=== PATIENT | female | born 1995 | race Caucasian/White ===

== ENCOUNTER 2018-01-05 21:34 | Emergency (ER) | payer OTHER ==
[2018-01-05] MEDS ORDERED: SODIUM CHLORIDE 0.9% 1,000 ML IV ONE (21:56)
[2018-01-05] MEDS ORDERED: FAMOTIDINE 20 MG/2 ML VIAL IV STA (21:56)
--- NOTE | 2018-01-05 22:16 | ED ---
General Adult HPI - General Chief complaint: Nausea/Vomiting/Diarrhea Stated complaint: abdominal pain/early Time Seen by Provider: 01/05/18 21:47 Source: patient Mode of arrival: ambulatory Limitations: no limitations - History of Present Illness Initial comments: Isa Grover is a 22yo female currently approximately 10 weeks based on LMP of 10/17/2017. Patient reports she has not had any care yet this but is scheduled to see OB on 01/08. Patient reports that she has been in her usual state of health, not experienced any morning sickness or vomiting in this . Patient reports that yesterday throughout the day she had multiple loose stools, today she developed nausea and persistent vomiting throughout the day. She reports this evening she attempted to eat green beans for dinner and subsequently vomited those up. At that time she decided to come to the ER for further evaluation. Patient reports she is having some epigastric discomfort associated with vomiting. Patient denies any lower abdominal pain, any pelvic pain, any vaginal discharge or bleeding. She reports that this is her third and she's never had any complications with , she has never experienced morning sickness or been ill during her . She reports that prior to yesterday she was feeling quite well. She denies any suspicious food intake or known sick contacts. She has a 4-year-old and 1-year-old child at home, neither for experiencing any symptoms. - Related Data Home Medications Medication Instructions Recorded Confirmed Pnv No.95/Ferrous Fum/Folic AC 01/05/18 [ Multivitamin Tablet] Previous Rx's Medication Instructions Recorded Cephalexin [Keflex] 500 mg PO Q6HR #28 cap 01/06/18 Allergies Allergy/AdvReac Type Severity Reaction Status Date / Time No Known Allergies Allergy Verified 01/05/18 21:45 Review of Systems ROS Statement: Those systems with pertinent positive or pertinent negative responses have been documented in the HPI. ROS Other: All systems not noted in ROS Statement are negative. Constitutional: Denies: fever ENT: Denies: throat pain Respiratory: Denies: cough, dyspnea Cardiovascular: Denies: chest pain, palpitations Endocrine: Denies: fatigue Gastrointestinal: Reports: abdominal pain, nausea, vomiting, diarrhea Genitourinary: Reports: abnormal menses (LMP 10/17/17). Denies: urgency, dysuria , frequency Skin: Denies: rash Neurological: Denies: headache Psychiatric: Denies: anxiety, depression Hematological/Lymphatic: Denies: easy bleeding, easy bruising Past Medical History Past Medical History: No Reported History History of Any Multi-Drug Resistant Organisms: None Reported Past Surgical History: Appendectomy Past Psychological History: No Psychological Hx Reported Smoking Status: Current some day smoker Past Alcohol Use History: None Reported Past Drug Use History: None Reported General Exam Limitations: no limitations General appearance: alert, in no apparent distress Head exam: Present: atraumatic, normocephalic Eye exam: Present: normal appearance, PERRL ENT exam: Present: normal exam Neck exam: Present: normal inspection Respiratory exam: Absent: respiratory distress Cardiovascular Exam: Present: regular rate, normal rhythm GI/Abdominal exam: Present: soft, tenderness (mild tenderness to deep palpation of epigastrum), normal bowel sounds. Absent: distended, guarding, rebound, rigid Extremities exam: Present: normal inspection Back exam: Present: normal inspection Neurological exam: Present: alert, oriented X3 Psychiatric exam: Present: normal affect, normal mood Skin exam: Present: warm, dry, intact Course Vital Signs 01/05/18 01/05/18 01/06/18 21:41 22:50 00:21 Temperature 98.6 F 98.8 F 98.6 F Pulse Rate 85 78 89 Respiratory 20 19 19 Rate Blood Pressure 109/59 129/56 114/55 O2 Sat by Pulse 100 100 100 Oximetry - Reevaluation(s) Reevaluation #1: Patient reevaluated, resting comfortably. States that she feels as though she can drink water at this time. Patient was given icewater. 01/05/18 23:13 Reevaluation #2: Patient drink entire cup of water and Keflex, she subsequently vomited up the Keflex. I will order Rocephin. Advised patient to drink small amounts slowly rather than drinking the entire cup of water's. Patient reports she's feeling well. 01/05/18 23:52 Medical Decision Making - Medical Decision Making Patient seen and evaluated, history obtained from patient and significant other at bedside Patient with known , 1 day of diarrhea with subsequent development of nausea and vomiting - vital signs are stable, physical exam reveals no evidence of dehydration Labs and IV fluids were ordered UA is likely contaminated, however considering the patient is we will treat Labs with no significant abnormalities, patient was updated on findings and reevaluated after IV fluids. Patient reports she is feeling much better. She was given a large glass of ice water and advised that she'll be given by mouth Keflex for urinary tract infection. Patient was reevaluated, she drink the entire glass of water and to Keflex very quickly, she subsequently vomited up the water and Keflex, however she reports she is feeling better now. Advised the patient to drink much slower. At this time I will treat with IV Rocephin for possible urinary tract infection. Advised patient that should when she follows up with her OB on Saturday she is have a repeat urinalysis. At this time the patient is tolerating by mouth and is comfortable with the plan for discharge home. All questions pertaining to care were answered best my ability patient was discharged home in stable condition with plan to follow up with OB as scheduled on Saturday of this week. - Lab Data Result diagrams: 01/05/18 22:01/05/18 22: Lab Results 01/05/18 01/05/18 01/05/18 Range/Units 22:01 22:01 22:01 WBC 10.8 H (3.8-10.6) k/uL RBC 4.54 (3.80-5.40) m/uL Hgb 14.0 (11.4-16.0) gm/dL Hct 38.4 (34.0-46.0) % MCV 84.6 (80.0-100.0) fL MCH 30.9 (25.0-35.0) pg MCHC 36.6 (31.0-37.0) g/dL RDW 11.9 (11.5-15.5) % Plt Count 188 (150-450) k/uL Neutrophils % 79 % Lymphocytes % 14 % Monocytes % 5 % Eosinophils % 1 % Basophils % 0 % Neutrophils # 8.5 H (1.3-7.7) k/uL Lymphocytes # 1.5 (1.0-4.8) k/uL Monocytes # 0.5 (0-1.0) k/uL Eosinophils # 0.1 (0-0.7) k/uL Basophils # 0.0 (0-0.2) k/uL Hyperchromasia Slight Sodium 138 (137-145) mmol/L Potassium 3.8 (3.5-5.1) mmol/L Chloride 103 (98-107) mmol/L Carbon Dioxide 23 (22-30) mmol/L Anion Gap 12 mmol/L BUN 9 (7-17) mg/dL Creatinine 0.50 L (0.52-1.04) mg/dL Est GFR (CKD-EPI)AfAm >90 (>60 ml/min/1.73 sqM) Est GFR (CKD-EPI)NonAf >90 (>60 ml/min/1.73 sqM) Glucose 86 (74-99) mg/dL Calcium 8.9 (8.4-10.2) mg/dL Total Bilirubin 0.7 (0.2-1.3) mg/dL AST 19 (14-36) U/L ALT 20 (9-52) U/L Alkaline Phosphatase 54 (38-126) U/L Total Protein 6.2 L (6.3-8.2) g/dL Albumin 3.6 (3.5-5.0) g/dL Lipase 93 (23-300) U/L Urine Color Yellow Urine Appearance Cloudy H (Clear) Urine pH 7.0 (5.0-8.0) Ur Specific Eddy 1.024 (1.001-1.035) Urine Protein Trace H (Negative) Urine Glucose (UA) Negative (Negative) Urine Ketones Negative (Negative) Urine Blood Negative (Negative) Urine Nitrite Negative (Negative) Urine Bilirubin Negative (Negative) Urine Urobilinogen <2.0 (<2.0) mg/dL Ur Leukocyte Esterase Large H (Negative) Urine RBC 1 (0-5) /hpf Urine WBC 45 H (0-5) /hpf Ur Squamous Epith Cells 34 H (0-4) /hpf Amorphous Sediment Occasional H (None) /hpf Urine Bacteria Few H (None) /hpf Urine Mucus Few H (None) /hpf Disposition Clinical Impression: Nausea and vomiting during Disposition: HOME SELF-CARE Condition: Good Instructions: Acute Nausea and Vomiting (ED) Prescriptions: Cephalexin [Keflex] 500 mg PO Q6HR #28 cap Is patient prescribed a controlled substance at d/c from ED?: No Referrals: None,Stated [Primary Care Provider] - 1-2 days Time of Disposition: 23:53
[2018-01-05 22:24] LABS: Basophils % (A) 0 %; Eosinophils # (A) 0.1 k/uL (0-0.7); Eosinophils % (A) 1 %; HCT 38.4 % (34.0-46.0); Hyperchromasia Slight; Lymphocytes # (A) 1.5 k/uL (1.0-4.8); Lymphocytes % (A) 14 %; MCH 30.9 pg (25.0-35.0); MCHC 36.6 g/dL (31.0-37.0); MCV 84.6 fL (80.0-100.0); Mean Platelet Volume 7.8; Monocytes # (A) 0.5 k/uL (0-1.0); Monocytes % (A) 5 %; Neutrophils # (A) 8.5 k/uL (1.3-7.7); Neutrophils % (A) 79 %; Platelet Count 188 k/uL (150-450); RBC 4.54 m/uL (3.80-5.40); RDW 11.9 % (11.5-15.5); WBC 10.8 k/uL (3.8-10.6)
[2018-01-05 22:35] LABS: Amorphous Sediment,Urine Occasional /hpf; Appearance,Urine Cloudy (Clear); Bacteria,Urine Few /hpf; Bilirubin,Urine Negative (Negative); Blood,Urine Negative (Negative); Color,Urine Yellow; Glucose,Urine (UA) Negative (Negative); Ketones,Urine Negative (Negative); Leukocyte Esterase,Urine Large (Negative); Mucus,Urine Few /hpf; Nitrite,Urine Negative (Negative); Protein,Urine Trace (Negative); RBC,Urine 1 /hpf (0-5); Specific Gravity,Urine 1.024 (1.001-1.035); Squamous Epithelial Cell,Urine 34 /hpf (0-4); Urobilinogen,Urine <2.0 mg/dL (<2.0); WBC,Urine 45 /hpf (0-5)
[2018-01-05 22:47] LABS: ALT 20 U/L (9-52); AST 19 U/L (14-36); Albumin 3.6 g/dL (3.5-5.0); Alkaline Phosphatase 54 U/L (38-126); Anion Gap 12 mmol/L; Blood Urea Nitrogen 9 mg/dL (7-17); Calcium 8.9 mg/dL (8.4-10.2); Carbon Dioxide 23 mmol/L (22-30); Chloride 103 mmol/L (98-107); Glucose 86 mg/dL (74-99); Lipase 93 U/L (23-300); Potassium 3.8 mmol/L (3.5-5.1); Sodium 138 mmol/L (137-145); Total Bilirubin 0.7 mg/dL (0.2-1.3); Total Protein 6.2 g/dL (6.3-8.2)
[2018-01-05] MEDS ORDERED: CEPHALEXIN 500MG STARTER PACK 4 CAP BTL PO STA (22:57)
[2018-01-05 22:59] VITALS: RESP 19
[2018-01-05] MEDS ORDERED: cefTRIAXone IN SWFI 1,000 MG/10 ML SYRINGE IVP STA (23:50)
[2018-01-06 00:23] VITALS: BP 114/55; PULSE 89; TEMP 98.6
== END 2018-01-06 00:24 | disposition home or self-care (01) ==
LOC: EC 21:34
DX: O21.9 Vomiting of pregnancy, unspecified (principal); O26.891 Other specified pregnancy related conditions, first trimester; R10.13 Epigastric pain; O99.331 Smoking (tobacco) complicating pregnancy, first trimester; F17.200 Nicotine dependence, unspecified, uncomplicated; Z3A.10 10 weeks gestation of pregnancy; Z90.49 Acquired absence of other specified parts of digestive tract
CPT/HCPCS: 36415; 80053; 83690; 85025; 81001; 99284; 96374; 96375; 96361; J0696

== ENCOUNTER → 2018-01-16 | Outpatient (CLI) | payer OTHER ==
--- NOTE | 2018-01-16 13:48 | US ---
EXAMINATION TYPE: Transabdominal DATE OF EXAM: 12/17/17 COMPARISON: NONE CLINICAL HISTORY: confirm dates Z36; smoker, EXAM PERFORMED: Transabdominal (TA) EXAM MEASUREMENTS: GESTATIONAL AGE / DATING Physician Established: Not yet established Dates by LMP: (13 weeks/ 0 days) EDC: 07/24/2018 Dates by First Scan: No previous. This is first scan Dates by Current Scan for: (12 weeks/4 days) EDC: 07/27/2018 MATERNAL ANATOMY Uterus: 12.6 x 8.1 x 8.6cm Right Ovary: 2.5 x 1.6 x 2.0cm with cyst = 1.4 x 1.1 x 1.2 Left Ovary: 2.6 x 2.2 x 1.9cm with Corpus Luteum of Post CDS / Adnexa: wnl Presence of free fluid: no Presence of corpus luteal cyst: in left ovary =1.5 x 1.5 x 1.4cm with peripheral ring of color flow Presence of subchorionic bleed: no GESTATION / SURVEY CRL: 6.2cm (12 weeks/4 days) Yolk Sac (normal less than 6mm): not seen Heart Rate: 163 bpm Rhythm: Normal IUP: Viable IUP Nuchal Translucency 10-14wks (normal less than 3mm): 0.7mm Date of LMP: 10/17/2017 Beta HcG (if available): NA Single, live IUP, 12 weeks/4 days, EDC: 07/27/2018, HR 163bpm. IMPRESSION: Single live intrauterine with a sonographic age of 12 weeks and 4 days and estimated date o f delivery of 07/27/2018. Dates are concordant with menstrual age.
[2018-01-16 13:57] LABS: HCT 38.1 % (34.0-46.0); HGB 13.5 gm/dL (11.4-16.0); MCH 30.6 pg (25.0-35.0); MCHC 35.4 g/dL (31.0-37.0); MCV 86.6 fL (80.0-100.0); Mean Platelet Volume 8.4; Platelet Count 191 k/uL (150-450); RDW 12.2 % (11.5-15.5); WBC 7.7 k/uL (3.8-10.6)
[2018-01-16 14:13] LABS: Glucose 71 mg/dL (74-99)
[2018-01-16 19:58] LABS: HIV AB P24 Non-Reactive (Non-Reactive); HIV P24 AG Non-Reactive (Non-Reactive)
[2018-01-17 03:05] LABS: Toxoplasma Antibody (IgG) <3.0 IU/mL (<7.2); Toxoplasma Antibody (IgM) <3.0 AU/mL (<8.0)
== END | disposition home or self-care (01) ==
LOC: RADUSWWP 12:49
PROVIDERS: ATTEND Obstetrics & Gynecology
DX: O26.811 Pregnancy related exhaustion and fatigue, first trimester (principal); Z3A.12 12 weeks gestation of pregnancy
CPT/HCPCS: 36415; 76801; 76813; 82565; 82947; 85027; 86762; 86777; 86778; 86780; 86850; 86900; 86901; 87340; 87390

== ENCOUNTER 2018-07-21 06:00 | Inpatient (IN) | payer OTHER ==
--- NOTE | 2018-07-20 09:43 | P.HPOB ---
History of Present Illness H&P Date: 07/20/18 Chief Complaint: Induction of labor This is a 22-year-old female 3 para 2 with an estimated date of confinement of 07/24/2018, estimated gestational age of 39-4/7 weeks, who presents to labor and delivery for induction of labor. She admits to good movement. She has been feeling irregular contractions and pressure. course has been essentially uncomplicated. labs: Hepatitis B surface antigen-negative on reactive Rubella-immune Syphilis antibody-negative Random glucose-71 Hemoglobin-13.5 HIV-nonreactive Toxoplasma-negative Blood type-B+ Antibody screen-negative Quad screen-negative One hour Glucola-128 Group B streptococcus-positive Obstetrical history: . History of 2 vaginal deliveries at term. Gynecologic history: No history of sexually transmitted diseases. 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 Review of Systems Constitutional: Reports as per HPI, Denies chills, Denies fever Eyes: denies blurred vision, denies pain Ears, nose, mouth and throat: Denies headache, Denies sore throat Respiratory: Denies cough Gastrointestinal: Reports abdominal pain (Irregular contractions) Genitourinary: Reports pelvic pain, Reports Musculoskeletal: Reports low back pain Integumentary: Denies pruritus, Denies rash Neurological: Denies numbness, Denies weakness Psychiatric: Denies anxiety, Denies depression Past Medical History Past Medical History: No Reported History History of Any Multi-Drug Resistant Organisms: None Reported Past Surgical History: Appendectomy Past Psychological History: No Psychological Hx Reported Smoking Status: Current some day smoker Past Alcohol Use History: None Reported Past Drug Use History: None Reported Medications and Allergies Home Medications Medication Instructions Recorded Confirmed Type Pnv No.95/Ferrous Fum/Folic AC 01/05/18 History [ Multivitamin Tablet] Allergies Allergy/AdvReac Type Severity Reaction Status Date / Time No Known Allergies Allergy Verified 01/05/18 21:45 Exam Osteopathic Statement: *. No significant issues noted on an osteopathic structural exam other than those noted in the History and Physical/Consult. HEENT: Within normal limits Heart: Regular rate and rhythm Lungs: Clear to auscultation bilaterally Abdomen: Cervix: 1-1/2 cm/60%/-1 station heart tones: 150s by Doppler Extremities: Negative Homans Assessment and Plan (1) 39 weeks gestation of Status: Acute Code(s): Z3A.39 - 39 WEEKS GESTATION OF SNOMED Code( s): 89435166 (2) Group B Streptococcus carrier, +RV culture, currently Status: Acute Code(s): O99.820 - STREPTOCOCCUS B CARRIER STATE COMPLICATING SNOMED Code(s): 6143401493768 Plan: Antibiotic prophylaxis for group B streptococcus. Oxytocin induction of labor. Epidural anesthesia if desired.
[2018-07-21] MEDS ORDERED: TERBUTALINE 1 MG/ML VIAL SQ PRN (06:19)
[2018-07-21] MEDS ORDERED: LIDOCAINE 1% INJ 10MG/ML (20 ML MDV) SQ PRN (06:19)
[2018-07-21] MEDS ORDERED: OXYTOCIN 10 UNIT/ML 1 ML VIAL IM PRN (06:19)
[2018-07-21] MEDS ORDERED: LIDOCAINE 1% 20 ML VIAL (10MG/ML) FOR IV START INTRADERMA PRN (06:19)
[2018-07-21] MEDS ORDERED: METHYLERGONOVINE 0.2 MG/ML 1 ML AMP IM PRN (06:19)
[2018-07-21] MEDS ORDERED: AMPICILLIN 2,000 MG in SODIUM CHLORIDE 0.9% 100 ML IVPB STA (06:19)
[2018-07-21] MEDS ORDERED: OXYTOCIN 20 UNITS/1000 ML NS 1,000 ML IV SCH (06:19)
[2018-07-21] MEDS ORDERED: CARBOPROST TROMETHAMINE 250 MCG/ML 1 ML AMP IM PRN (06:19)
[2018-07-21 06:30] LABS: Basophils % (A) 0 %; Eosinophils # (A) 0.1 k/uL (0-0.7); Eosinophils % (A) 1 %; HCT 41.1 % (34.0-46.0); HGB 14.3 gm/dL (11.4-16.0); Lymphocytes # (A) 2.1 k/uL (1.0-4.8); Lymphocytes % (A) 23 %; MCH 30.7 pg (25.0-35.0); MCHC 34.8 g/dL (31.0-37.0); MCV 88.4 fL (80.0-100.0); Mean Platelet Volume 8.3; Monocytes # (A) 0.4 k/uL (0-1.0); Monocytes % (A) 5 %; Neutrophils # (A) 6.3 k/uL (1.3-7.7); Neutrophils % (A) 69 %; Platelet Count 183 k/uL (150-450); RBC 4.65 m/uL (3.80-5.40); RDW 12.8 % (11.5-15.5); WBC 9.1 k/uL (3.8-10.6)
[2018-07-21] MEDS: LACTATED RINGERS 1,000 ML IV SCH ×2 (06:32→10:00)
[2018-07-21 06:44] VITALS: BMI 28.0
[2018-07-21] MEDS ORDERED: ROPIVACAINE 100 MG, fentaNYL (PF) 200 MCG in SODIUM CHLORIDE 0.9% 76 ML EPIDURAL ONE (10:16)
[2018-07-21] MEDS: AMPICILLIN 1,000 MG in SODIUM CHLORIDE 0.9% 50 ML IVPB SCH ×2 (10:33→14:28)
--- NOTE | 2018-07-21 15:34 | P.PROBDLV ---
Vaginal Delivery Note - . Vaginal Delivery Note: The patient progressed to complete dilation after oxytocin induction of labor and artificial rupture membranes with clear fluid noted. She did receive epidural anesthesia. She began pushing. 's head came to a crown. With one further push, the 's head delivered across the perineum followed by the anterior shoulder. Nose and mouth were bulb suctioned at the perineum. With one further push, the remainder the infant easily delivered and was placed on mother's abdomen. Cord was clamped and cut and was taken to warmer for evaluation. A viable male infant was noted with scores of 9 at 1 minute and 10 at 5 minutes and weight of 6 lbs. 3 oz. Placenta delivered shortly thereafter, intact, with a three-vessel cord. IV went subcu and therefore IM oxytocin was given. Uterus contracted fairly well and bleeding slowed. Evaluation of the perineum revealed bilateral periurethral abrasions but no active bleeding. Estimated blood loss is approximately 200 mL' s. Both mother and are in stable condition.
[2018-07-21 16:26] VITALS: RESP 16
[2018-07-21] MEDS ORDERED: HYDROCORTISONE 2.5% RECTAL CREAM 30 GM TUBE RECTAL PRN (16:34)
[2018-07-21] MEDS ORDERED: WITCH HAZEL 1 EACH MED..PAD TOPICAL PRN (16:34)
[2018-07-21] MEDS ORDERED: ACETAMINOPHEN TAB 325 MG TAB PO PRN (16:34)
[2018-07-21] MEDS ORDERED: SIMETHICONE 80 MG CHEWABLE PO PRN (16:34)
[2018-07-21] MEDS ORDERED: LANOLIN CREAM 5 GM TUBE TOPICAL PRN (16:34)
[2018-07-21] MEDS ORDERED: diphenhydrAMINE 25 MG CAP PO PRN (16:34)
[2018-07-21] MEDS ORDERED: diphenhydrAMINE 50 MG CAP PO PRN (16:34)
[2018-07-21] MEDS ORDERED: NICOTINE 14MG/24HR PATCH TRANSDERM STA (17:15)
[2018-07-21] MEDS ORDERED: INFLUENZA VACCINE (6 MOS+) 60 MCG/0.5 ML SYRINGE IM ONE (17:16)
[2018-07-21] MEDS ORDERED: DIPH,PERTUS(ACELL)TETVAC-LF 0.5 ML VIAL IM ONE (17:17)
[2018-07-21] MEDS: IBUPROFEN 600 MG TAB PO PRN (18:55)
[2018-07-21] MEDS: SENNOSIDES-DOCUSATE SODIUM 1 EACH TAB PO SCH (20:04)
[2018-07-22] MEDS: IBUPROFEN 600 MG TAB PO PRN ×3 (04:28→15:49)
[2018-07-22 07:08] LABS: Basophils % (A) 0 %; Eosinophils # (A) 0.1 k/uL (0-0.7); Eosinophils % (A) 1 %; HCT 36.7 % (34.0-46.0); HGB 12.2 gm/dL (11.4-16.0); Lymphocytes # (A) 1.9 k/uL (1.0-4.8); Lymphocytes % (A) 21 %; MCHC 33.3 g/dL (31.0-37.0); Mean Platelet Volume 8.2; Monocytes # (A) 0.5 k/uL (0-1.0); Monocytes % (A) 5 %; Neutrophils # (A) 6.8 k/uL (1.3-7.7); Neutrophils % (A) 72 %; Platelet Count 142 k/uL (150-450); RBC 4.08 m/uL (3.80-5.40); RDW 12.9 % (11.5-15.5); WBC 9.4 k/uL (3.8-10.6)
--- NOTE | 2018-07-22 08:58 | P.DS ---
Providers Date of admission: 07/21/18 06:10 Expected date of discharge: 07/22/18 Attending physician: Cris Kruger Primary care physician: Stated None - Discharge Diagnosis(es) (1) 39 weeks gestation of Current Visit: No Status: Acute (2) Group B Streptococcus carrier, +RV culture, currently Current Visit: No Status: Acute Hospital Course: This is a 22-year-old female 3 para 2 at 39-4/7 weeks who presented for induction of labor. She underwent oxytocin induction of labor and delivered vaginally a viable female infant on 07/21/2018 with scores of 9 at 1 minute and 10 at 5 minutes and weight of 6 lbs. 3 oz. Her course has been uncomplicated. She is bottle feeding. Lochia is decreasing. Pain is fairly well controlled with ibuprofen. Vital signs are stable. Abdomen is soft with fundus firm and nontender. Extremities show negative Homans. Impression is status post vaginal delivery day #1. Plan is to discharge home today. Routine instructions are given. She will be given a prescription for ibuprofen. She is instructed to follow-up in the office in 6 weeks for check. She is advised to call the office if she has any further questions or concerns prior to her appointment time. Procedures: Oxytocin induction of labor Spontaneous vaginal delivery of a viable female on 07/21/2018 Patient Condition at Discharge: Stable Plan - Discharge Summary New Discharge Prescriptions: New Ibuprofen [Motrin] 600 mg PO Q6HR PRN #60 tab PRN Reason: Mild Pain Or Fever >= 100.5 Continue Pnv No.95/Ferrous Fum/Folic AC [ Multivitamin Tablet] Discharge Medication List Pnv No.95/Ferrous Fum/Folic AC [ Multivitamin Tablet] 01/05/18 [History ] Ibuprofen [Motrin] 600 mg PO Q6HR PRN #60 tab 07/22/18 [Rx] Follow up Appointment(s)/Referral(s): Cris Kruger DO [Doctor of Osteopathic Medicine] - 6 Weeks Activity/Diet/Wound Care/Special Instructions: Instructions 1. Do not begin any exercise program for 3 weeks. 2. Do not resume sexual relations for 3 weeks or longer if uncomfortable. 3. You may take tub baths or showers at any time. 4. You may use tampons if desired after 3 weeks. 5. Keep the area of episiotomy (stitches) clean and dry. 6. If you are not nursing, wear a good fitting, supportive bra during the day and limit fluid intake for at least 1 week to prevent breast engorgement. 7. Call the office, [phone], within the next week to make appointment for your 6 week checkup if it has not already been made. 8. Report any of the following occurrences to the doctor promptly: a. Heavy, excessive bleeding b. Chills, fever c. Burning or frequency of urination d. Pain or redness and breasts if nursing e. Increasing pain or swelling in episiotomy (stitches). In addition to the above instructions, the following additional should be followed: 1. No heavy lifting or straining (exercising) until after 6 week checkup. 2. Keep abdominal incision clean and dry: You may wear a dressing if more comfortable. 3. Make office appointment for 10 days after going home or as instructed by her doctor. Discharge Disposition: HOME SELF-CARE
[2018-07-22] MEDS: SENNOSIDES-DOCUSATE SODIUM 1 EACH TAB PO SCH (10:15)
[2018-07-22 15:54] VITALS: BP 134/73; PULSE 99; TEMP 98.7
== END 2018-07-22 16:45 | disposition home or self-care (01) | DRG 776 ==
LOC: 4FBP 06:10
PROVIDERS: ADMIT Obstetrics & Gynecology; ATTEND Obstetrics & Gynecology
PROC: 10907ZC Drainage of Amniotic Fluid, Therapeutic from Products of Conception, Via Natural or Artificial Opening (ICD-10-PCS; principal; 2018-07-21)
PROC: 3E033VJ Introduction of Other Hormone into Peripheral Vein, Percutaneous Approach (ICD-10-PCS; 2018-07-21)
PROC: 00HU33Z Insertion of Infusion Device into Spinal Canal, Percutaneous Approach (ICD-10-PCS; 2018-07-21)
PROC: 3E0R3BZ Introduction of Anesthetic Agent into Spinal Canal, Percutaneous Approach (ICD-10-PCS; 2018-07-21)
DX: O71.82 Other specified trauma to perineum and vulva (principal); O99.824 Streptococcus B carrier state complicating childbirth; O99.334 Smoking (tobacco) complicating childbirth; F17.200 Nicotine dependence, unspecified, uncomplicated; Z37.0 Single live birth; Z3A.39 39 weeks gestation of pregnancy
CPT/HCPCS: 85025; 86850; 86900; 86901; 90471; 90686

== ENCOUNTER 2018-11-13 17:50 | Emergency (ER) | payer OTHER ==
[2018-11-13 18:09] VITALS: BP 135/73; PULSE 88; RESP 18
[2018-11-13] MEDS ORDERED: LIDOCAINE 1% INJ 10MG/ML (20 ML MDV) SQ STA (18:24)
[2018-11-13] MEDS ORDERED: HYDROcodone/APAP 7.5-325MG 1 EACH TAB PO ONE (18:24)
--- NOTE | 2018-11-13 18:42 | ED ---
General Adult HPI - General Chief complaint: Wound/Laceration Stated complaint: Finger laceration Time Seen by Provider: 11/13/18 18:00 Source: patient, RN notes reviewed, old records reviewed Mode of arrival: ambulatory Limitations: no limitations - History of Present Illness Initial comments: 23-year-old female patient upper and past medical history presents to ED after slamming her right thumb in a car door. Patient reports this happened approximately 1 hour prior to presentation. Patient has a facial laceration on the dorsal aspect of her thumb. Patient limited range of motion of left thumb due to pain. Laceration does not involve the nailbed. Patient does not have any other complaints. Patient has full active range of motion of left wrist. Pt reports tetanus updated within last 6 months. Systemic: Pt denies fatigue, fever/chills, rash. Pt denies weakness, night sweats, weight loss. Neuro: Pt denies headache, visual disturbances, syncope or pre-syncope. HEENT: Pt denies ocular discharge or irritation, otalgia, rhinorrhea, pharyngitis or notable lymphadenopathy. Cardiopulmonary: Pt denies chest pain, SOB, heart palpitations, dyspnea on exertion. Abdominal/GI: Pt denies abdominal pain, n/v/d. : Pt denies dysuria, burning w/ urination, frequency/urgency. Denies new onset urinary or bowel incontinence. MSK: Pt denies loss of strength or function in extremities. Neuro: Pt denies new onset weakness, paresthesias. - Related Data Home Medications Medication Instructions Recorded Confirmed Pnv No.95/Ferrous Fum/Folic AC 01/05/18 [ Multivitamin Tablet] Previous Rx's Medication Instructions Recorded Ibuprofen [Motrin] 600 mg PO Q6HR PRN #60 tab 07/22/18 Cephalexin [Keflex] 500 mg PO Q12HR 7 Days #14 cap 11/13/18 Allergies Allergy/AdvReac Type Severity Reaction Status Date / Time No Known Allergies Allergy Verified 11/13/18 18:07 Review of Systems ROS Statement: Those systems with pertinent positive or pertinent negative responses have been documented in the HPI. ROS Other: All systems not noted in ROS Statement are negative. Past Medical History Past Medical History: No Reported History History of Any Multi-Drug Resistant Organisms: None Reported Past Surgical History: Appendectomy Past Anesthesia/Blood Transfusion Reactions: No Reported Reaction Past Psychological History: No Psychological Hx Reported Smoking Status: Current every day smoker Past Alcohol Use History: None Reported Past Drug Use History: None Reported - Past Family History Mother Family Medical History: No Reported History General Exam - General Exam Comments Initial Comments: Constitutional: NAD, AOX3, Pt has pleasant affect. HEENT: NC/AT, trachea midline, neck supple, no lymphadenopathy. Posterior pharynx non erythematous, without exudates. External ears appear normal, without discharge. Mucous membranes moist. Eyes PERRLA, EOM intact. There is no scleral icterus. No pallor noted. Cardiopulmonary: RRR, no murmurs, rubs or gallops, no JVD noted. Lungs CTAB in anterior and posterior robin. No peripheral edema. Abdominal exam: Abdomen soft and non-distended. Abdomen non-tender to palpation in all 4 quadrants. Bowel sounds active in LLQ. No hepatosplenomegaly. No ecchymosis Neuro: CN II-XII grossly intact. No nuchal rigidity. MSK: L thumb mildly tender to palpation. 2cm laceration at dorsal aspect. Limited ROM secondary to pain. No snuffbox tenderness. No posterior calf tenderness bilaterally, homans sign negative bilaterally. Posterior tibialis and radial pulse +2 bilaterally. Sensation intact in upper and lower extremities. Full active ROM in upper and lower extremities, 5/5 stregnth. Limitations: no limitations Course Vital Signs 11/13/18 18:04 Pulse Rate 88 Respiratory 18 Rate Blood Pressure 135/73 O2 Sat by Pulse 97 Oximetry Procedures - Laceration Laceration #1 Consent Obtained: verbal consent Indication: laceration Site: other (L thmb) Size (cm): 2 Description: linear Depth: simple, single layer Anesthetic Used: lidocaine 1% Anesthesia Technique: local infiltration Amount (mls): 4 Pre-repair: wound explored, irrigated extensively (1L NS ), deep structures intact (no bony or tendinous involvement, no foreign body) Type of Sutures: nylon Size of Sutures: 5-0 Number of Sutures: 4 Disposition Clinical Impression: Laceration Disposition: HOME SELF-CARE Condition: Stable Instructions (If sedation given, give patient instructions): Care For Your Stitches (ED), Laceration (ED) Additional Instructions: Patient to adhere to previously discussed treatment plan and will take medication(s) as directed. Patient to follow up with PCP in 1-2 days. Patient to return to ED if symptoms do not improve. Please return for suture removal: Hand: 7-10 days Face: 5 days Chest/abdomen: 12-14 days Extremities: 7-10 days Scalp: 7 days Eyebrow: 5-7 days Foot/sole: 12-14 days Please monitor for signs and symptoms of infection including: redness, warmth, drainage, discharge. Please return to ED if these signs or symptoms occur, new signs or symptoms develop or if condition worsens in anyway. Prescriptions: Cephalexin [Keflex] 500 mg PO Q12HR 7 Days #14 cap Is patient prescribed a controlled substance at d/c from ED?: No Referrals: None,Stated [Primary Care Provider] - 1-2 days Josse Tijerina DO [Medical Doctor] - 1-2 days
--- NOTE | 2018-11-13 19:01 | XR ---
EXAMINATION TYPE: XR hand complete LT DATE OF EXAM: 11/13/2018 COMPARISON: NONE HISTORY: Laceration TECHNIQUE: 3 views FINDINGS: Metacarpals appear intact. I see no fracture nor dislocation. There is no sign of radiopaqu e foreign body. The thumb appears intact. IMPRESSION: Negative left hand exam.
== END 2018-11-13 20:10 | disposition home or self-care (01) ==
LOC: EC 17:50
DX: S61.012A Laceration without foreign body of left thumb without damage to nail, initial encounter (principal); F17.200 Nicotine dependence, unspecified, uncomplicated; W23.0XXA Caught, crushed, jammed, or pinched between moving objects, initial encounter
CPT/HCPCS: 12001; 99283

== ENCOUNTER → 2021-08-25 | Outpatient (CLI) | payer OTHER ==
[2021-08-25 19:15] LABS: Basophils # (A) 0.04 X 10*3/uL (0.00-0.10); Basophils % (A) 0.6 %; Eosinophils # (A) 0.07 X 10*3/uL (0.04-0.35); HCT 42.7 % (37.2-46.3); HGB 14.3 g/dL (12.0-15.0); Lymphocytes # (A) 1.98 X 10*3/uL (0.90-5.00); MCH 31.1 pg (27.0-32.0); MCHC 33.5 g/dL (32.0-37.0); MCV 92.8 fL (80.0-97.0); Mean Platelet Volume 11.5 fL (9.5-12.2); Monocytes # (A) 0.45 X 10*3/uL (0.20-1.00); Monocytes % (A) 6.4 %; Neutrophils % (A) 63.7 %; Platelet Count 189 X 10*3/uL (140-440); RDW 11.8 % (11.5-14.5); WBC 7.06 X 10*3/uL (4.50-10.00)
[2021-08-25 20:09] LABS: C-Peptide 1.35 ng/mL (0.81-3.85)
[2021-08-26 00:08] LABS: LDL Cholesterol,Calculated 51.8 mg/dL (0.0-131.0); VLDL Calculation 10.42 mg/dL (5.00-40.00)
[2021-08-26 00:09] LABS: ALT 22 U/L (8-44); AST 18 U/L (13-35); African American GFR (CKD) 107.8 (60.0-200.0); Albumin 4.4 g/dL (3.8-4.9); Alkaline Phosphatase 52 U/L (41-126); Blood Urea Nitrogen 13.8 mg/dL (9.0-27.0); Calcium 9.1 mg/dL (8.7-10.3); Chloride 101 mmol/L (96-109); Globulin 2.1 g/dL (1.6-3.3); Glucose 78 mg/dL (70-110); Sodium 138 mmol/L (135-145); Total Protein 6.6 g/dL (6.2-8.2)
[2021-08-26 00:28] LABS: Insulin Level 2.7 mIU/mL (3.0-25.0)
[2021-08-26 04:43] LABS: Hepatitis C IgG Antibody Nonreactive (Nonreactive)
== END | disposition home or self-care (01) ==
LOC: LABWHC1 10:54
PROVIDERS: ATTEND Internal Medicine
DX: E61.2 Magnesium deficiency (principal)
CPT/HCPCS: 36415; 80053; 80061; 82533; 83036; 83525; 84206; 84443; 84681; 85025; 86337; 86803

== ENCOUNTER → 2022-01-04 | Outpatient (CLI) | payer BC ==
--- NOTE | 2022-01-04 13:44 | US ---
EXAMINATION TYPE: US extremity nonvasc complt RT DATE OF EXAM: 01/04/2022 COMPARISON: NONE CLINICAL HISTORY: R22.30 NODULE OF SKIN UPPER EXTREMITY. Lump in right arm x a couple months. Scanned right medial upper arm just superior to the elbow at patient's palpable area of concern. 2 hypoechoic areas with hyperechoic centers seen. #1- 0.8 x 0.7 x 0.6 cm. #2- 0.4 x 0.3 x 0.4 cm. Hypoechoic, heterogeneous area seen: 2.0 x 1.5 x 1.2 cm. IMPRESSION: Indeterminate focus at the site of patient's palpable abnormality, there may be reactive adenopathy, follow-up suggested
== END | disposition home or self-care (01) ==
LOC: RADUSWWP 13:01
PROVIDERS: ATTEND Internal Medicine
DX: R22.30 Localized swelling, mass and lump, unspecified upper limb (principal)

== ENCOUNTER 2022-03-24 12:41 | Emergency (ER) | payer BC ==
[2022-03-24] MEDS ORDERED: MORPHINE SULFATE 4 MG/ML SYRINGE IM STA (13:07)
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
[2022-03-24 13:21] VITALS: RESP 18
--- NOTE | 2022-03-24 14:16 | XR ---
EXAMINATION TYPE: XR elbow complete RT, XR wrist complete RT, XR hand complete RT, XR forearm RT DATE OF EXAM: 03/24/2022 CLINICAL HISTORY: Pain and swelling after crushing injury TECHNIQUE: Frontal, lateral and oblique images of the right elbow and wrist and hand are obtained. 2 views right forearm. Additional fourth scaphoid view right wrist. COMPARISON: None FINDINGS: Suboptimal oblique positioning There is no acute fracture/dislocation evident in the right elbow. No abnormal fat pad signs are seen. There is 1.4 cm soft tissue calcification distal humerus along the ulnar aspect of uncertain etiology. Images of the right wrist show acute oblique nondisplaced fracture through the distal radial meta-epi physis extending into the growth plate. Carpal joint spaces are maintained. The adjacent ulna is inta ct. Overlying soft tissue is unremarkable. No additional acute fracture or dislocation in the remainder of the right radius and ulna. No additio nal acute fracture or dislocation in the right hand. Joint spaces are preserved. IMPRESSION: There is acute nondisplaced oblique intra-articular fracture through the distal radial m eta-epiphysis.
[2022-03-24] MEDS ORDERED: traMADol 50 MG STARTER PACK 3 TAB BTL PO STA (14:23)
[2022-03-24 14:40] VITALS: BP 127/86; PULSE 77; TEMP 97.8
== END 2022-03-24 14:40 | disposition home or self-care (01) ==
LOC: EC 12:41
DX: S52.501A Unspecified fracture of the lower end of right radius, initial encounter for closed fracture (principal); F17.200 Nicotine dependence, unspecified, uncomplicated; W22.8XXA Striking against or struck by other objects, initial encounter
CPT/HCPCS: 73080; 73090; 73110; 73130; 29125; 99283; 96372; J2270

== ENCOUNTER 2024-03-04 13:15 | Emergency (ER) | payer BC, OTHER ==
[2024-03-04 13:19] VITALS: RESP 18
--- NOTE | 2024-03-04 13:34 | ED ---
Eye Problem HPI - General Chief complaint: Eye Problems Stated complaint: Eye Problem Time Seen by Provider: 03/04/24 13:23 Source: patient, RN notes reviewed Mode of arrival: ambulatory Limitations: no limitations - History of Present Illness Initial comments: This is a 28-year-old female who presents to the emergency department for concerns of pinkeye. States that when she woke up this morning her left eye was matted shut and itchy. Her daughter was recently treated for pinkeye and believes that she may have caught it. Unsure if she may have had a fever this morning. Her eye is uncomfortable but not substantially painful. Denies any difficulty with her vision. Also denies any URI symptoms. MD chief complaint: eye pain, eye redness - Related Data Home Medications Medication Instructions Recorded Confirmed Pnv No.95/Ferrous Fum/Folic AC 01/05/18 [ Multivitamin Tablet] Previous Rx's Medication Instructions Recorded Ibuprofen [Motrin] 600 mg PO Q6HR PRN #60 tab 07/22/18 Cephalexin [Keflex] 500 mg PO Q12HR 7 Days #14 cap 11/13/18 Polymyxin B-Trimeth Sulf Ophth 1 drops LEFT EYE Q3H 7 Days #10 ml 03/04/24 [Polytrim Opthalmic] Allergies Allergy/AdvReac Type Severity Reaction Status Date / Time No Known Allergies Allergy Verified 03/04/24 13:19 Review of Systems ROS Statement: Those systems with pertinent positive or pertinent negative responses have been documented in the HPI. ROS Other: All systems not noted in ROS Statement are negative. Past Medical History Past Medical History: No Reported History History of Any Multi-Drug Resistant Organisms: None Reported Past Surgical History: Appendectomy Past Anesthesia/Blood Transfusion Reactions: No Reported Reaction Past Psychological History: No Psychological Hx Reported Smoking Status: Current every day smoker Past Alcohol Use History: Occasional Past Drug Use History: None Reported - Past Family History Mother Family Medical History: No Reported History General Exam Limitations: no limitations General appearance: alert, in no apparent distress Head exam: Present: atraumatic, normocephalic, normal inspection Eye exam: Present: PERRL, EOMI, other (Mild left conjunctival injection with some crusting of the lashes.). Absent: periorbital swelling, periorbital tenderness Respiratory exam: Present: normal lung sounds bilaterally. Absent: respiratory distress, wheezes, rales, rhonchi, stridor Cardiovascular Exam: Present: regular rate, normal rhythm, normal heart sounds. Absent: systolic murmur, diastolic murmur, rubs, gallop, clicks Neurological exam: Present: alert, oriented X3, CN II-XII intact Psychiatric exam: Present: normal affect, normal mood Course Vital Signs 03/04/24 03/04/24 13:17 13:45 Temperature 98 F 98.1 F Pulse Rate 84 86 Respiratory 18 18 Rate Blood Pressure 126/82 136/76 O2 Sat by Pulse 99 99 Oximetry Medical Decision Making - Medical Decision Making This is a 28-year-old female who presents to the emergency department for left eye discomfort/drainage. Was pt. sent in by a medical professional or institution? @ -No Did you speak to anyone other than the patient for history? @ -No Did you review nursing and triage notes? @ -Yes, and I agree, it is accurate with regards to the patient's symptoms. Were old charts reviewed? @ -No Differential Diagnosis? @ -Differential Eye Pain: Conjuncitivitis (viral, bacterial, allergic), corneal abrasion, foreign body, iritis, uveitis, keratitis, acute angle closure glaucoma, this is not meant to be an all-inclusive list. EKG interpreted by me (3pts min.)? @ -Not obtained X-rays interpreted by me (1pt min.)? @ -Not obtained CT interpreted by me (1pt min.)? @ -Not obtained U/S interpreted by me (1pt. min.)? @ -Not obtained What testing was considered but not performed? (CT, X-rays, U/S, labs)? Why? @ -None What meds were considered but not given? Why? @ -None Did you discuss the management of the patient with other professionals? @ -No Did you reconcile home meds? @ -No Was smoking cessation discussed for >3mins.? @ -I discussed smoking cessation for greater than 3 minutes. The risk of smoking were discussed with the patient including but not limited to risks of cancer, stroke, coronary artery disease and COPD. Also discussed with patient were multiple methods of quitting smoking. Lastly we discussed the financial cost of smoking. Was critical care preformed (if so, how long)? @ -No Were there social determinants of health that impacted care today? How? (Homelessness, low income, unemployed, alcoholism, drug addiction, transportation, low edu. Level, literacy, decrease access to med. care, [facility], rehab)? @ -No Was there de-escalation of care discussed even if they declined? (Discuss DNR or withdrawal of care, Hospice)? @ -No What co-morbidities impacted this encounter? (DM, HTN, Smoking, COPD, CAD, Cancer, CVA, Hep., AIDS, mental health diagnosis, sleep apnea, morbid obesity)? @ -Smoking Was patient admitted / discharged? @ -Discharged. Physical examination suggestive of mild conjunctivitis. Discussed that this may be viral or allergic in nature, especially given the itching. However, will treat the patient with antibiotic eyedrops in case there is a bacterial component. Prescription for Polytrim drops provided with dosing instructions reviewed. Discussed over the counter antihistamines as well for any potential allergic component. Undiagnosed new problem with uncertain prognosis? @ -None Drug Therapy requiring intensive monitoring for toxicity (Heparin, Nitro, Insulin, Cardizem)? @ -None Were any procedures done? @ -None Diagnosis/symptom? @ -Conjunctivitis Acute, or Chronic, or Acute on Chronic? @ -Acute Uncomplicated (without systemic symptoms) or Complicated (systemic symptoms)? @ -Uncomplicated Side effects of treatment? @ -None Exacerbation, Progression, or Severe Exacerbation] @ -Not applicable Poses a threat to life or bodily function? @ -No Return precautions reviewed in depth, the patient is instructed to return to the emergency department with any new, worsening, or concerning symptoms. Patient verbalized understanding. This case was discussed in detail with the attending ED physician, Dr. Valencia. Presentation, findings, and treatment plan discussed in detail as well. Disposition Clinical Impression: Conjunctivitis, Nicotine dependence Disposition: HOME SELF-CARE Instructions (If sedation given, give patient instructions): Conjunctivitis (ED) Additional Instructions: Return to the emergency department with any new, worsening, or concerning symptoms. Apply the Polytrim drops as 1 drop to the left eye every 3 hours while awake for 7 to 10 days. Follow up with your primary care provider in 1-2 days. Prescriptions: Polymyxin B-Trimeth Sulf Ophth [Polytrim Opthalmic] 1 drops LEFT EYE Q3H 7 Days #10 ml Is patient prescribed a controlled substance at d/c from ED?: No Referrals: Elías Velázquez DO [Primary Care Provider] - 1-2 days Time of Disposition: 13:34
[2024-03-04 13:46] VITALS: BP 136/76; PULSE 86; TEMP 98.1
== END 2024-03-04 13:46 | disposition home or self-care (01) ==
LOC: EC 13:15
DX: H10.9 Unspecified conjunctivitis (principal); F17.200 Nicotine dependence, unspecified, uncomplicated
CPT/HCPCS: 99283; 99406